=== PATIENT | female | born 1955 | race Caucasian/White ===

== ENCOUNTER → 2017-07-17 | Outpatient (CLI) | payer BC ==
[~2017-07-17] MED LIST: ASPIRIN ADULT L81 M2 PO; ASPIRIN325 M1 PO; D-10001 TAB PO; HYDROCODONE-APA1 TA1 PO; LEVAQUIN750 MG PO; LEXAPRO 20 MG T20 MG PO; LIPITOR40 MG PO; MAXZIDE 25 MG-31 TA1 PO; MEDROL 4MG. DOSE4 MG PO; NORCO 325 MG-101 TAB PO; VITAMIN B-12100 MCG PO
== END ==
LOC: RT 13:02
DX: R94.31 Abnormal electrocardiogram [ECG] [EKG] (principal)